=== PATIENT | female | born 1965 | race African-American/Black ===

== ENCOUNTER 2017-02-11 04:44 | Emergency (ER) | payer OTHER ==
--- NOTE | ~2017-02-11 | CT4 ---
[facility] A Service of [facility] & [facility] RADIOLOGY TEXT RESULTS PATIENT: ELIANA DIAZ LOCATION: [facility] : 63 UNIT #: [id number] AGE: [address]: EULA JOSUE SEX: F ORDER DR: [id number] [facility] [address] [place], [place] [address] [id number] E MR#: [id number] Acc #: [id number] NAME: ELIANA DIAZ : 1965 SEX: F STUDY DATE/TIME: 02/11/2017 4:15 UNIT: [facility] ROOM: STUDY DESCRIPTION: CT Abd and Pelv Wo Cont Attending Physician: Eula Josue Aprn Ordering Physician: Ed Doctor [id number] [facility] Primary Care Physician: Shantanu Epstein M.D. MEDICAL IMAGING REPORT This report is preliminary unless electronic signature is present EXAM CT abdomen and pelvis without contrast, 02/11/2017 HISTORY 51-year-old female with left lower flank pain and abdominal pain radiating to the back and difficulty urinating with nausea and vomiting since yesterday, 02/10/2017. COMPARISON CT abdomen and pelvis with contrast, 01/18/2017 PROCEDURE 3.0 mm noncontrast axial images through the abdomen and pelvis. Enteric contrast was not administered. Sagittal and coronal reformatted images were obtained. TECHNIQUE This CT exam was performed with one or more of the following radiation dose reduction techniques: automatic exposure control, adjustment of mA and/or kV according to patient size, and iterative reconstruction. FINDINGS ABDOMEN FINDINGS: A 5.0-6.0 mm stone is lodged within the left ureteropelvic junction resulting in mild left hydronephrosis and hydroureter. A 5.0 mm stone is lodged within the left lower renal pole. No right renal or ureteral stone is seen. Lung bases are free of consolidation. Cholecystectomy changes are present. Noncontrast appearance of the liver, spleen, pancreas and adrenals within normal limits. No free air or free fluid. The appendix is normal. Limited evaluation of bowel due to lack of enteric contrast. Diverticular changes are present within the descending and sigmoid colon without evidence of acute diverticulitis. STS[facility] A Service of [facility] & [facility] RADIOLOGY TEXT RESULTS PATIENT: ELIA[facility] DIA[id number] [birth year] UNIT #: [id number] AGE: [address]: EULA JOSUE SEX: F ORDER DR: PELVIS FINDINGS: The urinary bladder and rectum are normal. Presumed hysterectomy. Degenerative changes within the lumbar spine. No acute osseous abnormality. IMPRESSION 1. 5.0-6.0 mm left ureteropelvic junction stone with mild left hydronephrosis and hydroureter. 2. 5.0 mm nonobstructing left renal stone. 3. Normal appendix. 4. Presumed hysterectomy. Cholecystectomy. Dictated by... Ruth Galindo M.D. THIS IS AN ELECTRONICALLY VERIFIED REPORT Ruth Galindo M.D. at 02/15/2017 8:37 AM Tc TD: 02/11/2017 10:49 JOB #: [id number] MEDICAL IMAGING REPORT Page 1 of 1 COPY
[2017-02-11 04:05] LABS: POC - CKMB 1.3 ng/mL (0.0-7.9); POC - TROPONIN <0.05 ng/mL (<=0.05)
[~2017-02-11 04:44] MED LIST: ACIPHEX20 MG; ALEVE; BACTRIM DS TABL1 TAB; CELEBREX; EC-NAPROSYN500 MG PO; FLEXERIL10 MG PO; HCTZ PO; KCL PO; LEXAPRO PO; MEDROL DOSEPAK4 MG PO; NEXIUM PO; NORCO 10/325 TA1 TAB PO; NORCO 5/325 TAB1 TAB PO; ORUDIS75 M1 PO; REGLAN; REGLAN PO; SENNA PO; TOPAMAX; TRAZODONE PO; VICODIN 5/1 TAB 5/50 PO; VIT B-12; VIT E
[2017-02-11 06:15] LABS: URINE SOURCE CLEAN CATCH
[2017-02-11 06:18] LABS: URINE APPEARANCE CLOUDY; URINE BILIRUBIN NEG (NEG); URINE BLOOD 3+ (NEG); URINE COLOR YELLOW; URINE GLUCOSE NEG (NEG); URINE KETONE NEG (NEG); URINE LEUKOCYTE ESTERASE TRACE (NEG); URINE NITRATE NEG (NEG); URINE PROTEIN NEG (NEG); URINE SPECIFIC GRAVITY 1.023 (1.003-1.035)
[2017-02-11 06:20] LABS: CULTURE INDICATED? YES; URBCS1 AUWI 200-300 /[HPF] (0-2); URINE BACTERIA AUWI 1+ (NEGATIVE); URINE SQUAMOUS EPITHELIAL CELL FEW /[HPF]
[2017-02-11 06:27] LABS: BASOPHIL% 0.4 % (0-2.5); DIFF IND YES; EOSINOPHIL# 0.2 X10e3 (0-0.7); EOSINOPHIL% 3.3 % (0.0-7.0); HEMATOCRIT 39.1 % (35.0-45.0); HEMOGLOBIN 12.7 gm/dL (12.0-16.0); LYMPHOCYTE# 4.7 X10e3 (1.0-3.5); LYMPHOCYTE% 61.4 % (17.0-45.0); MEAN CELL VOLUME 81.8 FL (83-96); MEAN CORPUSCULAR HEMOGLOBIN 26.6 PG (28-34); MEAN CORPUSCULAR HGB CONC 32.6 g/dL (30-36); MEAN PLATELET VOLUME 7.8 FL (6.5-11.5); MONOCYTE# 0.6 X10e3 (0-1.0); MONOCYTE% 7.5 % (3.0-12.0); NEUTROPHIL# 2.1 X10e3 (1.5-7.1); NEUTROPHIL% 27.4 % (40-75); PLATELET COUNT 250 X10e3 (140-420); RED BLOOD COUNT 4.79 X10e (3.90-5.30); RED CELL DISTRIBUTION WIDTH 13.4 % (11.0-15.5); WHITE BLOOD COUNT 7.6 X10e3 (4.0-10.5)
[2017-02-11 06:38] LABS: ALBUMIN SERUM 3.8 g/dL (3.5-5.0); ALKALINE PHOSPHATASE 86 U/L (32-92); ALT (SGPT) 20 U/L (10-40); AST (SGOT) 23 U/L (10-42); BILIRUBIN,TOTAL 0.4 mg/dL (0.2-2.0); BLOOD UREA NITROGEN 18 mg/dL (9-23); BUN/CREATININE RATIO 25.71; CALCIUM SERUM 9.7 mg/dL (8.4-10.2); CARBON DIOXIDE 28 mmol/L (22-31); CHLORIDE 102 mmol/L (100-111); CREATININE SERUM 0.7 mg/dL (0.6-1.4); GLOM FILT RATE Estimated ABOVE60 mL/min (>60); GLUCOSE FASTING 117 mg/dL (70-110); LIPASE 32 U/L (22-51); POTASSIUM 3.8 mmol/L (3.5-5.1); PROTEIN TOTAL SERUM 7.2 g/dL (6.0-8.3); SODIUM 139 mmol/L (135-145)
[2017-02-11 06:51] LABS: ANISOCYTOSIS SL; MICROCYTOSIS SL; PLATELET ESTIMATE NORMAL (NORMAL)
[2017-02-17] MEDS ORDERED: [UNRECOGNIZED DRUG - REMARK] PO (15:37)
[2017-02-23] MEDS ORDERED: REGLAN10 MG PO (12:03)
[2017-02-23] MEDS ORDERED: MELOXICAM15 MG PO (15:09)
[2017-02-23] MEDS ORDERED: DULOXETINE HCL60 MG PO (15:10)
[2017-02-23] MEDS ORDERED: CARVEDILOL6.25 MG PO (15:10)
[2017-02-23] MEDS ORDERED: BACLOFEN20 M1 PO (15:11)
[2017-02-23] MEDS ORDERED: ANEXSIA 7.5/3251 TA1 PO (15:12)
[2017-02-23] MEDS ORDERED: AMITRIPTYLINE H25 MG PO (15:12)
[2017-02-23] MEDS ORDERED: LOZOL PO (15:15)
== END 2017-02-11 07:01 | disposition home or self-care (01) ==
LOC: CED 04:44
PROVIDERS: Nurse Practitioner Family
DX: N13.2 Hydronephrosis with renal and ureteral calculous obstruction (principal); K21.9 Gastro-esophageal reflux disease without esophagitis; I10 Essential (primary) hypertension; J45.909 Unspecified asthma, uncomplicated; K57.92 Diverticulitis of intestine, part unspecified, without perforation or abscess without bleeding; Z90.49 Acquired absence of other specified parts of digestive tract; Z90.710 Acquired absence of both cervix and uterus; F17.210 Nicotine dependence, cigarettes, uncomplicated; Z88.0 Allergy status to penicillin; Z88.5 Allergy status to narcotic agent; Z88.1 Allergy status to other antibiotic agents; Z88.8 Allergy status to other drugs, medicaments and biological substances
CPT/HCPCS: 36415; 74176; 80053; 81003; 82553; 82947; 83690; 84484; 85025; 87086; 96361; 96374; 96375; 99284; J1170; J1885; J2405

== ENCOUNTER 2017-02-14 03:03 | Emergency (ER) | payer OTHER ==
--- NOTE | ~2017-02-14 | EKG ---
PATIENT: ELIANA DIAZ UNIT #: [id number] Ventricular Rate: 78 BPM Atrial Rate: 78 BPM P-R Interval: 128 ms QRS Duration: 86 ms Q-T Interval: 374 ms QTC Calculation(Bezet): 426 ms P [place]: 19 degrees Calculated R [place]: 18 degrees Calculated T [place]: 18 degrees Diagnosis Line: Normal sinus rhythm Diagnosis Line: Normal ECG Diagnosis Line: When compared with ECG of 14-FEB-2017 03:36, Diagnosis Line: (unconfirmed) Diagnosis Line: No significant change was found Diagnosis Line: Confirmed by KRISTI HUANG MD ([id number]) on Diagnosis Line: 02/14/2017 8:03:56 AM INTERPRETING MD: REINA LAMB
[2017-02-14 03:26] LABS: BASOPHIL# 0.1 X10e3 (0-0.3); BASOPHIL% 0.5 % (0-2.5); EOSINOPHIL% 0.2 % (0.0-7.0); HEMATOCRIT 39.2 % (35.0-45.0); HEMOGLOBIN 12.8 gm/dL (12.0-16.0); LYMPHOCYTE# 1.5 X10e3 (1.0-3.5); LYMPHOCYTE% 15.2 % (17.0-45.0); MEAN CELL VOLUME 81.1 FL (83-96); MEAN CORPUSCULAR HEMOGLOBIN 26.6 PG (28-34); MEAN CORPUSCULAR HGB CONC 32.8 g/dL (30-36); MEAN PLATELET VOLUME 7.2 FL (6.5-11.5); MONOCYTE# 0.4 X10e3 (0-1.0); MONOCYTE% 4.5 % (3.0-12.0); NEUTROPHIL# 7.9 X10e3 (1.5-7.1); NEUTROPHIL% 79.6 % (40-75); PLATELET COUNT 230 X10e3 (140-420); RED BLOOD COUNT 4.83 X10e (3.90-5.30); RED CELL DISTRIBUTION WIDTH 13.1 % (11.0-15.5)
[2017-02-14 03:27] LABS: DIFF IND NO
[2017-02-14 03:31] LABS: POC - CKMB <1.0 ng/mL (0.0-7.9); POC - TROPONIN <0.05 ng/mL (<=0.05)
[2017-02-14 03:54] LABS: ALBUMIN SERUM 3.6 g/dL (3.5-5.0); ALKALINE PHOSPHATASE 86 U/L (32-92); ALT (SGPT) 24 U/L (10-40); AMYLASE 26 U/L (0-46); AST (SGOT) 28 U/L (10-42); BILIRUBIN, DIRECT 0.1 mg/dL (0.0-0.2); BILIRUBIN,INDIRECT 0.4 mg/dL (0.0-0.9); BILIRUBIN,TOTAL 0.5 mg/dL (0.2-2.0); BLOOD UREA NITROGEN 17 mg/dL (9-23); BUN/CREATININE RATIO 15.45; CALCIUM SERUM 9.3 mg/dL (8.4-10.2); CARBON DIOXIDE 27 mmol/L (22-31); CHLORIDE 103 mmol/L (100-111); CREATININE SERUM 1.1 mg/dL (0.6-1.4); GLOM FILT RATE Estimated ABOVE60 mL/min (>60); GLUCOSE FASTING 117 mg/dL (70-110); LIPASE 20 U/L (22-51); POTASSIUM 3.7 mmol/L (3.5-5.1); PROTEIN TOTAL SERUM 7.2 g/dL (6.0-8.3); SODIUM 138 mmol/L (135-145)
[2017-02-14 06:36] LABS: URINE SOURCE CLEAN CATCH
[2017-02-14 06:43] LABS: URINE APPEARANCE CLEAR; URINE BILIRUBIN NEG (NEG); URINE BLOOD TRACE (NEG); URINE COLOR YELLOW; URINE GLUCOSE NEG (NEG); URINE KETONE NEG (NEG); URINE LEUKOCYTE ESTERASE 1+ (NEG); URINE NITRATE NEG (NEG); URINE PH 7.5 (5-8); URINE PROTEIN NEG (NEG); URINE SPECIFIC GRAVITY 1.021 (1.003-1.035)
[2017-02-14 06:45] LABS: CULTURE INDICATED? YES; URINE BACTERIA AUWI 1+ (NEGATIVE); URINE SQUAMOUS EPITHELIAL CELL OCC /[HPF]
[2017-02-17] MEDS ORDERED: [UNRECOGNIZED DRUG - REMARK] PO (15:37)
[2017-02-23] MEDS ORDERED: REGLAN10 MG PO (12:03)
[2017-02-23] MEDS ORDERED: MELOXICAM15 MG PO (15:09)
[2017-02-23] MEDS ORDERED: DULOXETINE HCL60 MG PO (15:10)
[2017-02-23] MEDS ORDERED: CARVEDILOL6.25 MG PO (15:10)
[2017-02-23] MEDS ORDERED: BACLOFEN20 M1 PO (15:11)
[2017-02-23] MEDS ORDERED: AMITRIPTYLINE H25 MG PO (15:12)
[2017-02-23] MEDS ORDERED: ANEXSIA 7.5/3251 TA1 PO (15:12)
[2017-02-23] MEDS ORDERED: LOZOL PO (15:15)
== END 2017-02-14 07:26 | disposition home or self-care (01) ==
LOC: CED 03:03
PROVIDERS: Nurse Practitioner
DX: N20.1 Calculus of ureter (principal); I10 Essential (primary) hypertension; J45.909 Unspecified asthma, uncomplicated; K21.9 Gastro-esophageal reflux disease without esophagitis; Z90.710 Acquired absence of both cervix and uterus; Z90.49 Acquired absence of other specified parts of digestive tract; Z88.8 Allergy status to other drugs, medicaments and biological substances; Z88.0 Allergy status to penicillin; Z88.5 Allergy status to narcotic agent; Z79.899 Other long term (current) drug therapy
CPT/HCPCS: 36415; 51701; 80048; 80076; 81003; 82150; 82553; 83690; 84484; 85025; 85610; 85730; 87086; 93005; 96361; 96374; 96375; 99284; J1170; J1885; J2405

== ENCOUNTER → 2017-02-23 | Day surgery (SDC) | payer OTHER ==
[~2017-02-23] MED LIST changes: +AMITRIPTYLINE H25 MG PO; +ANEXSIA 7.5/3251 TA1 PO; +BACLOFEN20 M1 PO; +CARVEDILOL6.25 MG PO; +DULOXETINE HCL60 MG PO; +LOZOL PO; +MELOXICAM15 MG PO; +REGLAN10 MG PO; +[UNRECOGNIZED DRUG - REMARK] PO
--- NOTE | ~2017-02-23 | OR ---
Unit #: [id number] #: [id number] Patient: ELIANA DIAZ [id number] [address] [place], [place] [address] [id number] O MR#: [id number] NAME: ELIANA DIAZ ROOM: Date of Procedure: 02/23/2017 Admission Date: 02/23/2017 Surgeon: Jeremias Fortune M.D. : 1965 Attending Physician: Jeremias Fortune M.D. Primary Care Physician: Shantanu Epstein M.D. OPERATIVE REPORT PREOPERATIVE DIAGNOSES Left ureteropelvic junction calculus with hydronephrosis. POSTOPERATIVE DIAGNOSES Left ureteropelvic junction calculus with hydronephrosis. PROCEDURES PERFORMED Cystoscopy, flexible ureteroscopy, holmium laser lithotripsy, basket extraction of fragments, placement of double-J ureteral stent with external tether. ANESTHESIA General. INDICATIONS FOR PROCEDURE This is morbidly obese, 51-year-old woman, has a 7-mm stone obstructing the left ureteropelvic junction. DESCRIPTION OF PROCEDURE The patient was given preoperative antibiotics and satisfactory general anesthesia. In the dorsal lithotomy position, routine prep and drape were performed. The 21-Egyptian rigid cystoscope was introduced with the obturator. Then, a 30-degree lens and video were used to examine the bladder noting no abnormalities other than mild glycogenation of the trigone. The ureteral orifices were normal and symmetric. The stone was faintly visible fluoroscopically at the UPJ. A Sensor guidewire was passed up encountering it and passing beyond. It was elected to place an 11 x 13 mm ureteral access sheath. This was performed easily up to the level of the stone. The flexible ureteroscope was then passed over the guidewire, seeing where the stone had been impacted in area that was only mildly inflamed. The stone was found in a posterior calyx. It was treated with a 200 nanometer laser fiber, rendering small fragments most of which were individually basket extracted. She was then given a 24 x 6 double-J stent after draining the bladder. The stent string was shortened and tucked within the vagina after applying a Uro-jet in the urethra. She tolerated the procedure well. Multiple fragments sent for chemical analysis. She will be discharged with [facility] and Keflex. Follow up in the office in 5 days for removal of her stent with the external tether. Unit #: [id number] #: [id number] Patient: ELIANA DIAZ Dictated by... Jeff Block/frieda TD: 02/23/2017 23:46 JOB #: [id number] OPERATIVE REPORT Page 1 of 1 X Jeremias Fortune MD PROCEDURE OPERATIVE NOTE
--- NOTE | ~2017-02-23 | EKG ---
PATIENT: ELIANA DIAZ UNIT #: [id number] Ventricular Rate: 73 BPM Atrial Rate: 73 BPM P-R Interval: 146 ms QRS Duration: 82 ms Q-T Interval: 392 ms QTC Calculation(Bezet): [address]: 44 [address] R Trail: 19 degrees Calculated T Trail: 18 degrees Diagnosis Line: Normal sinus rhythm Diagnosis Line: Normal ECG Diagnosis Line: When compared with ECG of 14-FEB-2017 03:36, Diagnosis Line: No significant change was found Diagnosis Line: Confirmed by CHERYL BOWMAN MD ([id number]) on 02/23/2017 Diagnosis Line: 9:23:52 PM INTERPRETING MD: GRACIE LAMB
[2017-02-23 12:51] LABS: BUN/CREATININE RATIO 15.71; CALCIUM SERUM 8.9 mg/dL (8.4-10.2); CREATININE SERUM 0.7 mg/dL (0.6-1.4); GLOM FILT RATE Estimated 115.5 mL/min (>60); POTASSIUM 3.5 mmol/L (3.5-5.1)
== END | disposition home or self-care (01) ==
LOC: CSUR 11:36
PROVIDERS: Urology
DX: N13.2 Hydronephrosis with renal and ureteral calculous obstruction (principal); J45.909 Unspecified asthma, uncomplicated; F17.210 Nicotine dependence, cigarettes, uncomplicated; Z87.442 Personal history of urinary calculi; K21.9 Gastro-esophageal reflux disease without esophagitis; Z87.19 Personal history of other diseases of the digestive system; Z90.710 Acquired absence of both cervix and uterus; Z90.49 Acquired absence of other specified parts of digestive tract; Z90.89 Acquired absence of other organs; Z88.6 Allergy status to analgesic agent; Z91.040 Latex allergy status; Z88.8 Allergy status to other drugs, medicaments and biological substances; Z88.0 Allergy status to penicillin; Z88.5 Allergy status to narcotic agent
CPT/HCPCS: 80048; 82365; 88300; 93005; C1758; C2617; J0690; J1170; J2405; J3010

== ENCOUNTER → 2017-04-11 | Outpatient (CLI) | payer OTHER ==
--- NOTE | ~2017-04-11 | US77 ---
[facility] A Service of [facility] RADIOLOGY TEXT RESULTS PATIENT: ELIANA DIAZ LOCATION: [facility] : 63 UNIT #: [id number] AGE: [address]: Jeremias Fortune MD SEX: F ORDER DR: [id number] [facility] [address] [place], [place] [address] [id number] O MR#: [id number] #: [id number] NAME: ELIANA DIAZ : 1965 SEX: F STUDY DATE/TIME: 04/11/2017 8:21 UNIT: [facility] ROOM: STUDY DESCRIPTION: US Kidney Bilateral Complete Attending Physician: Jeremias Fortune M.D. Referring Physician: Jeremias Fortune M.D. Ordering Physician: Jeremias Fortune M.D. Primary Care Physician: Jeremias Fortune M.D. MEDICAL IMAGING REPORT This report is preliminary unless electronic signature is present EXAM Renal ultrasound bilateral 04/11/2017 INDICATIONS 51-year-old female with history of renal stones on the left. Lithotripsy performed in late January of this year. Pain that began 2 weeks ago that was spasm-like. Hypertension controlled with medication. TECHNIQUE Sonographic imaging of the kidneys was performed bilaterally. COMPARISON Correlation is made with CT 02/11/2017. FINDINGS The right kidney measures 10.1 cm long axis, and the left measures 12.2 cm. No hydronephrosis or shadowing stone on either side. Portions of both kidneys were obscured by bowel gas. The bladder unremarkable to the extent visualized. IMPRESSION 1. No hydronephrosis or shadowing stone on either side. 2. Previously demonstrated nonobstructing stone measuring 5 mm in the njp-va-hztyn pole left kidney on the prior CT has no definite correlate on ultrasound today. Dictated by... Onel Berkowitz M.D. THIS IS AN ELECTRONICALLY VERIFIED REPORT Onel Berkowitz M.D. at 04/11/2017 4:30 PM OSMAN/yandel [facility] A Service of [facility] RADIOLOGY TEXT RESULTS PATIENT: ELIANA DIAZ LOCATION: [facility] : 63 UNIT #: [id number] AGE: [address]: Jeremias Fortune MD SEX: F ORDER DR: TD: 04/11/2017 13:37 JOB #: [id number] MEDICAL IMAGING REPORT Page 1 of 1 COPY
== END | disposition home or self-care (01) ==
LOC: CWCC 04-08 12:45
DX: N20.0 Calculus of kidney (principal)
CPT/HCPCS: 76770